=== PATIENT | female | born 1975 | race Hispanic/Latino ===

== ENCOUNTER → 2024-02-07 | Day surgery (SDC) | payer OTHER ==
[~2024-02-07] MED LIST: FENTANYL CITRATE/PF 100MCG/2 ML INJ ONE; LIDOCAINE HCL 2% LOCAL INJ 5 ML SDV VIAL INJ ONE; MIDAZOLAM HCL 2 MG/2 ML VIAL ONE; PROPOFOL IV EMULSION 10 MG/ML 20 ML VIAL ONE; TYLENOL325 MG PO
[2024-02-07] MEDS: LACTATED RINGER'S 1,000 ML ONE (16:07)
[2024-02-07 18:25] VITALS: BP 134/78; PULSE 69; RESP 16; TEMP 97.6; O2SAT 96
== END | disposition home or self-care (01) ==
LOC: OR 15:32
PROVIDERS: ATTEND Internal Medicine Gastroenterology
DX: K21.9 Gastro-esophageal reflux disease without esophagitis (principal); K29.50 Unspecified chronic gastritis without bleeding; K29.80 Duodenitis without bleeding; K31.89 Other diseases of stomach and duodenum; R13.10 Dysphagia, unspecified; D12.4 Benign neoplasm of descending colon; K59.00 Constipation, unspecified; K64.8 Other hemorrhoids; K64.4 Residual hemorrhoidal skin tags; R16.0 Hepatomegaly, not elsewhere classified; R03.0 Elevated blood-pressure reading, without diagnosis of hypertension; Z68.31 Body mass index [BMI] 31.0-31.9, adult; Z86.16 Personal history of COVID-19; Z86.73 Personal history of transient ischemic attack (TIA), and cerebral infarction without residual deficits; Z87.01 Personal history of pneumonia (recurrent); Z87.898 Personal history of other specified conditions
CPT/HCPCS: 43239; 45384; 81025; 93005; J2003; J2250; J2704; J3010; J7121; 45385